=== PATIENT | male | born 1970 | race Caucasian/White ===

== ENCOUNTER 2020-10-12 11:26 | Emergency (ER) | payer OTHER ==
[~2020-10-12] VITALS: Ht 185.4 cm; Wt 93.2 kg
[2020-10-12 11:49] VITALS: TEMP 98.1
[2020-10-12 14:25] VITALS: BP 140/61; PULSE 80
== END 2020-10-12 14:30 | disposition home or self-care (01) ==
LOC: COL.ER 11:26
DX: S50.01XA Contusion of right elbow, initial encounter (principal); F17.210 Nicotine dependence, cigarettes, uncomplicated; W23.1XXA Caught, crushed, jammed, or pinched between stationary objects, initial encounter; Y92.834 Zoological garden (Zoo) as the place of occurrence of the external cause; Y99.0 Civilian activity done for income or pay